=== PATIENT | male | born 1940 | race Caucasian/White ===

== ENCOUNTER 2017-09-03 17:19 | Emergency (ER) | payer OTHER ==
[~2017-09-03] VITALS: Ht 175.3 cm; Wt 102.4 kg
[~2017-09-03 17:19] MED LIST: ASPIR 8181 M1 PO; ASPIR-LOW81 MG PO; AVELOX400 MG PO; BENADRYL25 MG PO; COUMADIN1 MG PO; CYCLOBENZAPRINE10 MG PO; FIBER TABS625 MG PO; FISH OIL; FLONASE16 G1 BOTH NARES; GLUCOPHAGE500 MG PO; GLUCOTROL5 MG PO; IRON325 MG PO; MOBIC15 MG PO; OXYCODONE HCL5 MG PO; PREDNISONE10 MG PO; PROVENTIL HFA6.7 GM IH; SENNA-TIME S T1 EACH PO; SINGULAIR10 MG PO; SPIRIVA1 INHALATI IH; SYMBICORT60 INHALAT IH; TYLENOL REGULA325 MG PO; WELLBUTRIN; ZESTRIL2.5 MG PO; ZYBAN 150 MG T150 MG PO; [UNRECOGNIZED DRUG - OTHER]; celeBREX PO
[2017-09-03 18:13] LABS: HEMATOCRIT 48.4 % (38.0-50.0); HEMOGLOBIN 15.8 G/DL (12.5-16.6); MCH 28.8 PG (29.0-34.0); MCHC 32.6 G/DL (30.0-36.0); MCV 88.3 FL (86-99); PLATELET COUNT 273 K/uL (156-360); RBC DIS.WIDTH-CV 13.3 % (11.8-14.6); RED BLOOD COUNT 5.48 M/uL (4.00-5.50); WHITE BLOOD COUNT 10.6 K/uL (4.1-10.2)
[2017-09-03 18:24] LABS: CHLORIDE 105 mEq/L (99-109); POTASSIUM 4.7 mEq/L (3.7-5.4); SODIUM 140 mEq/L (136-147)
[2017-09-03 18:26] LABS: GLUCOSE 92 mg/dL (70-99)
[2017-09-03 18:30] LABS: CREATININE 1.4 mg/dL (0.6-1.3); GFR ESTIMATE (CALCULATED) 52 mL/min/ (58.99-99999)
[2017-09-03 18:31] LABS: UREA NITROGEN (BUN) 20 mg/dL (9-23)
[2017-09-03] MEDS ORDERED: ZITHROMAX250 MG PO (21:05)
[2017-09-03] MEDS ORDERED: NORCO 10/3251 TABLET PO (21:05)
[2017-09-03] MEDS ORDERED: PREDNISONE20 MG PO (21:05)
[2017-09-03] MEDS ORDERED: FLONASE16 G1 BOTH NARES (21:08)
[2017-09-03 22:23] VITALS: BP 124/73
== END 2017-09-03 22:28 | disposition home or self-care (01) ==
LOC: EME 17:19
DX: S29.8XXA Other specified injuries of thorax, initial encounter (principal); J44.1 Chronic obstructive pulmonary disease with (acute) exacerbation; N28.9 Disorder of kidney and ureter, unspecified; R03.0 Elevated blood-pressure reading, without diagnosis of hypertension; X50.9XXA Other and unspecified overexertion or strenuous movements or postures, initial encounter; E11.9 Type 2 diabetes mellitus without complications; E78.5 Hyperlipidemia, unspecified; Z87.442 Personal history of urinary calculi; Z87.891 Personal history of nicotine dependence; Z79.84 Long term (current) use of oral hypoglycemic drugs; Z88.8 Allergy status to other drugs, medicaments and biological substances
CPT/HCPCS: 71046; 80048; 85027; 93005; 94640; 99281; 99284; J7512